=== PATIENT | female | born 1970 | race Caucasian/White ===

== ENCOUNTER 2017-07-04 03:57 | Inpatient (IN) | payer BC ==
[2017-07-04] VITALS (9 sets, daily range): BP systolic 108–133; BP diastolic 69–78; PULSE 54–86; TEMP 36.3–37; O2SAT 90–100; Ht 162.6 cm; Wt 63.8 kg
[~2017-07-04] VITALS: Ht 162.6 cm; Wt 63.8 kg
[2017-07-04] MEDS ORDERED: ONDANSETRON INJ 2 MG/ML 2 ML VIAL IV STA ×2 (04:19→05:28)
[2017-07-04] MEDS ORDERED: MoRPHine SULFATE 4 MG/ML 1 ML CARP\\VIAL IV STA ×2 (04:19→05:28)
--- NOTE | 2017-07-04 04:20 | EMERGENCY ROOM VISIT NOTE ---
History Report prepared by Federico: Dhruv Ivy Under the Supervision of: Dr. Adelaida Hobbs D.O. First contact with patient: 04:05 Chief Complaint: ABDOMINAL PAIN Stated Complaint: LWR ABD PAIN S/P GALLBLADDER SURGERY Nursing Triage Summary: Gallbladder out Thursday morning (24 hours). Now having pain that is persistant radiating to back. History of Present Illness The patient is a 47 year old female who presents to the Emergency Room with complaints of worsening RLQ abdominal pain that began 12 hours ago. She describes the pain as a "stabbing". She has associated symptoms of radiating back pain and nausea. She denies vomiting. Patient states she took a Percocet prior to arrival at the ED with some relief of the symptoms. Patient states that she had a cholecystectomy [address] Scott performed the patient's procedure. Source of History: patient Onset: 1 day ago Position: abdomen (RLQ) Quality: stabbing Timing: worsening Modifying Factors (Relieving): other (Percocet) Associated Symptoms: + nausea, + back pain Review of Systems See HPI for pertinent positives & negatives. A total of 10 systems reviewed and were otherwise negative. Past Medical & Surgical Medical Problems: (1) Bile leak, postoperative Surgical Problems: (1) Hx of cholecystectomy Family History Cancer Gallbladder disease Social History Smoking Status: Never Smoker Alcohol Use: none Drug Use: none Marital Status: Current/Historical Medications No Active Prescriptions or Reported Meds Allergies Coded Allergies: No Known Allergies (Unverified , 07/04/17) Physical Exam Vital Signs Date Time Temp Pulse Resp B/P (MAP) Pulse Ox O2 Delivery O2 Flow Rate FiO2 07/04/17 08:11 36.9 74 22 136/86 100 Nasal Cannula 2.0 07/04/17 06:48 72 33 94 Room Air 07/04/17 06:33 69 96 07/04/17 06:30 132/73 07/04/17 06:18 64 31 94 07/04/17 06:03 63 34 94 07/04/17 06:01 130/68 07/04/17 05:48 58 19 94 07/04/17 05:33 65 30 97 07/04/17 05:28 129/70 07/04/17 05:27 66 34 96 Room Air 07/04/17 05:12 56 07/04/17 04:57 54 32 98 07/04/17 04:42 52 21 98 07/04/17 03:58 36.8 62 20 203/70 99 Room Air Physical Exam General: Extremely uncomfortable HEENT: Head - normocephalic and atraumatic Pupils are equal, round, and reactive to light. Extraocular eye muscles are intact, and sclera are anicteric. Nose - dry nasal mucosa without discharge. Mouth - moist buccal mucosa. Oropharynx is nonerythematous and there is no tonsillar exudate or edema noted. Neck: Supple; no JVD, nuchal rigidity, cervical lymphadenopathy, or auscultated bruits. Heart: Tachycardic rate and rhythm. There is a normal S1 and S2 with no murmurs , clicks, or gallops appreciated. Lungs: Clear to auscultation bilaterally with no wheezes, rales, or rhonchi. Abdomen: Soft, nondistended, with good bowel sounds. There are no palpable pulsatile masses or hepatosplenomegaly. Exquisite tenderness to palpitation to RLQ of abdomen with guarding and rebound. No obvious cellulitis or edema surrounding the surgical incisions. Extremities: No evidence of cyanosis, clubbing, or edema. There are easily palpable peripheral pulses. Skin: warm and dry with good turgor and no rashes. Medical Decision & Procedures ER Provider Diagnostic Interpretation: Radiology results as stated below per my review and the radiologist's interpretation: CT ABDOMEN & PELVIS With Contrast: Trace bilateral pleural effusions with adjacent compressive atelectasis in the lower lobes. Status post recent laparoscopic cholecystectomy. Subcutaneous emphysema in the body wall and pneumoperitoneum in the upper abdomen may represent normal postsurgical changes. There is mild ascites throughout the abdomen and pelvis, which may indicate bile leak status post cholecystectomy. Correlate clinically and consider HIDA scan for further evaluation. Spleen, pancreas, adrenal glands, and kidneys are unremarkable. No evidence of bowel obstruction or inflammation. The appendix is not clearly distinguished. Urinary bladder and uterus are unremarkable. No acute osseous findings. Radiologist: Kelby Sesay M.D. Laboratory Results 07/04/17 04:10 Red Blood Count 4.87, Mean Corpuscular Volume 76.8, Mean Corpuscular Hemoglobin 24.2, Mean Corpuscular Hemoglobin Concent 31.6, Mean Platelet Volume 10.1, Neutrophils (%) (Auto) 74.0, Lymphocytes (%) (Auto) 16.9, Monocytes (%) (Auto) 8.4, Eosinophils (%) (Auto) 0.2, Basophils (%) (Auto) 0.2, Neutrophils # (Auto) 9.16, Lymphocytes # (Auto) 2.09, Monocytes # (Auto) 1.04, Eosinophils # (Auto) 0.03, Basophils # (Auto) 0.03 07/04/17 04:10 Test 07/04/17 04:10 White Blood Count 12.39 K/uL (4.8-10.8) Red Blood Count 4.87 M/uL (4.2-5.4) Hemoglobin 11.8 g/dL (12.0-16.0) Hematocrit 37.4 % (37-47) Mean Corpuscular Volume 76.8 fL (80-100) Mean Corpuscular Hemoglobin 24.2 pg (25-34) Mean Corpuscular Hemoglobin Concent 31.6 g/dl (32-36) Platelet Count 292 K/uL (130-400) Mean Platelet Volume 10.1 fL (7.4-10.4) Neutrophils (%) (Auto) 74.0 % Lymphocytes (%) (Auto) 16.9 % Monocytes (%) (Auto) 8.4 % Eosinophils (%) (Auto) 0.2 % Basophils (%) (Auto) 0.2 % Neutrophils # (Auto) 9.16 K/uL (1.4-6.5) Lymphocytes # (Auto) 2.09 K/uL (1.2-3.4) Monocytes # (Auto) 1.04 K/uL (0.11-0.59) Eosinophils # (Auto) 0.03 K/uL (0-0.5) Basophils # (Auto) 0.03 K/uL (0-0.2) RDW Standard Deviation 46.0 fL (36.4-46.3) RDW Coefficient of Variation 16.4 % (11.5-14.5) Immature Granulocyte % (Auto) 0.3 % Immature Granulocyte # (Auto) 0.04 K/uL (0.00-0.02) Anion Gap 6.0 mmol/L (3-11) Est Creatinine Clear Calc Drug Dose 57.3 ml/min Estimated GFR () 72.9 Estimated GFR (Non- 62.9 BUN/Creatinine Ratio 12.9 (10-20) Calcium Level 8.7 mg/dl (8.5-10.1) Total Bilirubin 0.6 mg/dl (0.2-1) Direct Bilirubin 0.2 mg/dl (0-0.2) Aspartate Amino Transf (AST/SGOT) 38 U/L (15-37) Alanine Aminotransferase (ALT/SGPT) 41 U/L (12-78) Alkaline Phosphatase 65 U/L (45-117) Total Protein 8.2 gm/dl (6.4-8.2) Albumin 3.8 gm/dl (3.4-5.0) Lipase 158 U/L (73-393) Laboratory results per my review. Medications Administered Medications (Trade) Dose Ordered Sig/Nataliia Route Start Time Stop Time Status Last Admin Dose Admin Morphine Sulfate (MoRPHine SULFATE INJ) 4 mg NOW STAT IV 07/04/17 04:19 07/04/17 04:22 DC 07/04/17 04:25 4 MG Ondansetron HCl (Zofran Inj) 4 mg NOW STAT IV 07/04/17 04:19 07/04/17 04:22 DC 07/04/17 04:25 4 MG Morphine Sulfate (MoRPHine SULFATE INJ) 4 mg NOW STAT IV 07/04/17 05:28 07/04/17 05:29 DC 07/04/17 05:36 4 MG Ondansetron HCl (Zofran Inj) 4 mg NOW STAT IV 07/04/17 05:28 07/04/17 05:29 DC 07/04/17 05:35 4 MG Hydromorphone HCl (Dilaudid Inj) 0.5 mg NOW STAT IV 07/04/17 06:33 07/04/17 06:34 DC 07/04/17 06:43 0.5 MG Sodium Chloride 1,000 ml @ 250 mls/hr Q4H STAT IV 07/04/17 06:49 07/04/17 10:48 DC 07/04/17 07:17 250 MLS/HR Hydromorphone HCl (Dilaudid Inj) 1 mg Q3H PRN IV 07/04/17 07:15 07/18/17 07:14 07/04/17 16:55 1 MG Hydromorphone HCl (Dilaudid Inj) 0.5 mg NOW STAT IV 07/04/17 08:03 07/04/17 08:04 DC 07/04/17 08:08 0.5 MG Procedure Zofran Inj 4mg IV, Morphine Sulfate 4mg IV, Zofran Inj 4mg IV, Morphine Sulfate 4mg IV, Dilaudid Inj 0.5mg IV, Dilaudid Inj 0.5mg ED Course 0414: The patient was evaluated in room A12. A complete history and physical examination were performed. Nursing notes and previous electronic medical records were reviewed. IV lock was established and labs were drawn as above. 0419: Zofran Inj 4mg IV, Morphine Sulfate 4mg IV 0445: Ioversol 125ml IV for CT scan of the abdomen/pelvis. 0506: I discussed the patient's lab findings with them. 0528: The patient continues to complain of nausea and abdominal pain. She describes the pain as burning. Zofran Inj 4mg IV, Morphine Sulfate 4mg IV. I reviewed the results of the CT scan. 0626: I spoke with the patient. She rates her pain as a 7/10. 0633: Dilaudid Inj 0.5mg IV 0803: The patient was evaluated by surgery and continues to have significant discomfort. I ordered Dilaudid Inj 0.5mg IV 0900: Upon reevaluation, I discussed findings and results with the patient. She verbalized agreement of the treatment plan. I spoke with the Jarrett Hughes, the on-call PA for Dr. Roman, of Surgery. The patient will be evaluated for further management and care. Medical Decision The patient is a 47 year old female who presents to the ED with RLQ abdominal pain. Differential diagnosis includes perforated viscous, bile leak, retained common bowel duct stone, and retained CO2. Lab results show white count = 12.3, hemoglobin = 11.8, glucose = 125, normal LFTs, and normal renal function. This 47 year old female patient who underwent acute cholecystectomy yesterday. Following the procedure, the patient developed increasing abdominal pain throughout the day to the point that it was severe overnight. She presents here with stabbing/burning abdominal pain. Physical exam was concerning for an acute abdomen. The patient went for stat CT scan of the abdomen/pelvis which showed some expected intra-abdominal emphysema but also ascites. I discussed the case with surgery and they will further evaluate the patient explaining that the patient may need to undergo ERCP to rule out a bile leak. Medication Reconcilliation Current Medication List: was personally reviewed by me Blood Pressure Screening Patient's blood pressure: Elevated blood pressure Blood pressure disposition: Elevated BP felt to be situational Consults Time Called: 06 Consulting Physician: Dr. Roman - Surgeon of [facility] Returned Call: 0634 Discussed the patient's case with the on-call PAJarrett PA-C. The patient will be evaluated for further management. Impression Primary Impression: Bile leak, postoperative Scribe Attestation The scribe's documentation has been prepared under my direction and personally reviewed by me in its entirety. I confirm that the note above accurately reflects all work, treatment, procedures, and medical decision making performed by me. Departure Information Dispostion Being Evaluated By Hospitalist Prescriptions No Active Prescriptions or Reported Meds Referrals No Doctor, Assigned (PCP) Forms Call Back Authorization, HOME CARE DOCUMENTATION FORM, IMPORTANT VISIT INFORMATION Patient Instructions My [facility]
[2017-07-04 04:33] LABS: BASO % 0.2 %; BASO ABS # 0.03 K/uL (0-0.2); EOS % 0.2 %; EOS ABS # 0.03 K/uL (0-0.5); HEMATOCRIT 37.4 % (37-47); HEMOGLOBIN 11.8 g/dL (12.0-16.0); IG# 0.04 K/uL (0.00-0.02); LYMPH % 16.9 %; LYMPH ABS # 2.09 K/uL (1.2-3.4); MEAN CELL VOLUME 76.8 fL (80-100); MEAN CORPUSCULAR HEMOGLOBIN 24.2 pg (25-34); MEAN CORPUSCULAR HGB CONC 31.6 g/dl (32-36); MEAN PLATELET VOLUME 10.1 fL (7.4-10.4); MONO % 8.4 %; MONO ABS # 1.04 K/uL (0.11-0.59); NEUT ABS # 9.16 K/uL (1.4-6.5); PLATELET COUNT 292 K/uL (130-400); RED CELL DISTRIBUTION WIDTH CV 16.4 % (11.5-14.5); WHITE BLOOD COUNT 12.39 K/uL (4.8-10.8)
[2017-07-04] MEDS ORDERED: OPTIRAY 320 IV PRN (04:45)
[2017-07-04 04:57] LABS: ALBUMIN 3.8 gm/dl (3.4-5.0); CALCIUM 8.7 mg/dl (8.5-10.1); CREATININE 1.06 mg/dl (0.60-1.20); POTASSIUM 3.5 mmol/L (3.5-5.1)
[2017-07-04 05:00] LABS: TOTAL PROTEIN 8.2 gm/dl (6.4-8.2)
[2017-07-04] MEDS ORDERED: HYDROmorphone INJ 0.5 MG/0.5 ML SYR IV STA ×2 (06:33→08:03)
[2017-07-04] MEDS ORDERED: SODIUM CHLORIDE 0.9% 1000ML 1,000 ML IV STA (06:49)
--- NOTE | 2017-07-04 06:54 | DIAGNOSTIC IMAGING REPORT ---
CT SCAN OF THE ABDOMEN AND PELVIS WITH IV CONTRAST CLINICAL HISTORY: Right lower quadrant pain status post recent cholecystectomy. COMPARISON STUDY: No priors. TECHNIQUE: Following the IV administration of 120 cc of Optiray 320, CT scan of the abdomen and pelvis is performed from the lung bases to the proximal femora. Images are reviewed in the axial, sagittal, and coronal planes. IV contrast was administered without complication. A dose lowering technique was utilized adhering to the principles of ALARA. CT DOSE: 297.90 mGy.cm FINDINGS: Lung bases: The heart is normal in size and without pericardial effusion. There are trace pleural effusions with bibasilar atelectasis. Liver: The contrast-enhanced liver is normal in size, contour, and attenuation. There is minimal central intrahepatic biliary ductal dilatation. The hepatic veins and portal veins are patent. Gallbladder: Surgically absent noting clips in the gallbladder fossa. There is no organized fluid collection to gallbladder fossa. Spleen: Normal in size and attenuation. Pancreas: Unremarkable. Adrenal glands: Unremarkable. Kidneys: The contrast enhanced kidneys are normal in size and without hydronephrosis. The kidneys enhance symmetrically. Abdominal vasculature: The abdominal aorta is normal in course and caliber. Bowel: The small bowel and colon are normal in course and caliber. The appendix is not clearly visualized. Peritoneum: There is a small to moderate volume of intraperitoneal free air, greatest in the upper abdomen. This is likely related to recent surgery. There is a small volume of perihepatic and perisplenic free fluid, as well as free fluid in the cul-de-sac. Lymphadenopathy: None. Pelvic viscera: The bladder, uterus, and adnexa are normal as visualized. Skeletal structures: No lytic or blastic lesions are seen. Soft tissues: There is body wall edema. Foci of subcutaneous gas in the right lower quadrant abdominal wall and the periumbilical region are likely related to laparoscopy ports and recent surgery. IMPRESSION: 1. There are trace pleural effusions with bibasilar atelectasis. 2. There is intraperitoneal free air as well as subcutaneous emphysema in the body wall which are likely expected postoperative finding. 3. There is a small volume of abdominopelvic ascites as well as body wall edema. This could be related to hydration status. A bile leak would be impossible to exclude by CT. If there is clinical concern for bile leak then a nuclear hepatobiliary scan could be considered. 4. Additional findings as above. Electronically signed by: Reza Loving M.D. 07/04/2017 6:52 AM Dictated Date/Time: 07/04/2017 6:46 AM
--- NOTE | 2017-07-04 07:08 | Medical Consult ---
Consultation Date of Consultation: Jul 04, 2017. Attending Physician: Reason for Consultation: Possible Bile Leak History of Present Illness patient is a 47F who presents to the ED this AM due to severe lower quadrant abdominal pain that came on around 3 AM. She is s/p laparoscopic cholecystectomy with Dr. Scott yesterday morning 07/03/17 and was discharged around 1230 pm that day. States she went home and had some soreness and shoulder pain from the surgery, but it was manageable. When she woke up at 3AM this morning she was in severe pain and told her she needed to goto the ED. Denies nausea, vomiting. States she normally feels a bit cold but denies fevers/chills. No BM yet and reports no flatus. CT abd/pelvis shows trace bilateral pleural effusions in the lower lobes, post-surgical changes and mild ascites throughout the abdomen and pelvis which may represent a bile leak. WBC mildly elevated at 12.39, AST 38, remaining LFTs WNL. Denies pain like this in the past. Reports the morphine she has received thus far has done nothing for the pain. Social History Smoking Status: Never Smoker Allergies Coded Allergies: No Known Allergies (Unverified , 07/04/17) Current Inpatient Medications Current Inpatient Medications Medications (Trade) Dose Ordered Sig/Nataliia Route Start Time Stop Time Status Last Admin Dose Admin Ioversol (Optiray 320) 125 ml UD PRN IV 07/04/17 04:45 07/08/17 04:44 Review of Systems Constitutional: No fever, No chills, No sweats Abdomen: + pain (Lower quadrants), No nausea, No vomiting, No diarrhea Genitourinary - Female: No dysuria Physical Exam Date Time Temp Pulse Resp B/P (MAP) Pulse Ox O2 Delivery O2 Flow Rate FiO2 07/04/17 05:28 129/70 07/04/17 05:27 66 34 96 Room Air 07/04/17 05:12 56 07/04/17 04:57 54 32 98 07/04/17 04:42 52 21 98 07/04/17 03:58 36.8 62 20 203/70 99 Room Air Patient laying in bed with at bedside, nursing staff administering dilaudid as I entered the room. General Appearance: WD/WN, no apparent distress Head: normocephalic, atraumatic ENT: hearing grossly normal Respiratory/Chest: no respiratory distress, no accessory muscle use Abdomen/GI: normal bowel sounds, no organomegaly, no pulsatile mass, + tenderness (Lower quadrants), + distended (Mild), + guarding Neurologic/Psych: alert, normal mood/affect, oriented x 3 Skin: normal color, warm/dry, no rash Laboratory Results Last 24 Hours Test 07/04/17 04:10 White Blood Count 12.39 K/uL Red Blood Count 4.87 M/uL Hemoglobin 11.8 g/dL Hematocrit 37.4 % Mean Corpuscular Volume 76.8 fL Mean Corpuscular Hemoglobin 24.2 pg Mean Corpuscular Hemoglobin Concent 31.6 g/dl Platelet Count 292 K/uL Mean Platelet Volume 10.1 fL Neutrophils (%) (Auto) 74.0 % Lymphocytes (%) (Auto) 16.9 % Monocytes (%) (Auto) 8.4 % Eosinophils (%) (Auto) 0.2 % Basophils (%) (Auto) 0.2 % Neutrophils # (Auto) 9.16 K/uL Lymphocytes # (Auto) 2.09 K/uL Monocytes # (Auto) 1.04 K/uL Eosinophils # (Auto) 0.03 K/uL Basophils # (Auto) 0.03 K/uL RDW Standard Deviation 46.0 fL RDW Coefficient of Variation 16.4 % Immature Granulocyte % (Auto) 0.3 % Immature Granulocyte # (Auto) 0.04 K/uL Sodium Level 136 mmol/L Potassium Level 3.5 mmol/L Chloride Level 102 mmol/L Carbon Dioxide Level 28 mmol/L Anion Gap 6.0 mmol/L Blood Urea Nitrogen 14 mg/dl Creatinine 1.06 mg/dl Est Creatinine Clear Calc Drug Dose 57.3 ml/min Estimated GFR () 72.9 Estimated GFR (Non- 62.9 BUN/Creatinine Ratio 12.9 Random Glucose 125 mg/dl Calcium Level 8.7 mg/dl Total Bilirubin 0.6 mg/dl Direct Bilirubin 0.2 mg/dl Aspartate Amino Transf (AST/SGOT) 38 U/L Alanine Aminotransferase (ALT/SGPT) 41 U/L Alkaline Phosphatase 65 U/L Total Protein 8.2 gm/dl Albumin 3.8 gm/dl Lipase 158 U/L Assessment & Plan Possible bile leak 1 day s/p laparoscopic cholecystectomy Still in some pain, will see if dilaudid helps. No N/V. WBC 12.38, AST 38 with remaining LFTs WNL. Consult GI for possible ERCP. Admit Med/surg, NPO, IV Fluids, IV pain medication PRN, IV Zofran for nausea. Findings discussed with Dr. Roman. Please contact with questions or concerns.
[2017-07-04] MEDS ORDERED: HYDROCODONE/ACETAMIN 5/325MG TAB PO PRN (07:15)
[2017-07-04] MEDS ORDERED: HYDROmorphone INJ 0.5 MG/0.5 ML SYR IV PRN (07:15)
[2017-07-04] MEDS ORDERED: ONDANSETRON INJ 2 MG/ML 2 ML VIAL IV PRN ×2 (07:15→18:15)
[2017-07-04] MEDS: HYDROmorphone INJ 1 MG/ML SYR IV PRN ×3 (09:28→16:55)
--- NOTE | 2017-07-04 13:37 | DIAGNOSTIC IMAGING REPORT ---
NUCLEAR HEPATOBILIARY SCAN CLINICAL HISTORY: Right-sided abdominal pain. Recent cholecystectomy. Free fluid seen by CT. Clinical concern for bile leak. COMPARISON STUDY: Abdominal CT dated 07/04/2017. TECHNIQUE: Dynamic images of the liver and anterior abdomen were obtained every 5 minutes for a total of 30 minutes following the IV administration of 5.34mCi of technetium 99m Choletec. An additional static images performed at 45 minutes. FINDINGS: The hepatobiliary scan shows prompt and homogeneous hepatic uptake. There is visualized activity within the intra and extrahepatic biliary tree at 10 minutes. There is extensive pooling of tracer identified in the gallbladder fossa which extends into the mid to lower abdomen. This is not located within bowel loops and consistent with a bile leak. IMPRESSION: Findings are consistent with a large bile leak. Electronically signed by: Reza Loving M.D. 07/04/2017 1:36 PM Dictated Date/Time: 07/04/2017 1:33 PM
--- NOTE | 2017-07-04 14:48 | Gastrointestinal Consultation ---
Gastrointestinal Consultation Date of Consultation: Jul 04, 2017 Attending Physician: Heather Red Consulting Physician: Reason for Consultation: Bile leak History of Present Illness Patient is a 47 year old female with no medical comorbids s/p Lap enedina yesterday for gallstones, developed severe abdominal pain in the night hence presented to the hospital. CT scan showed intraabdominal fluid collection suspicious for bile leak. HIDA scan confirmed the leak hence GI consulted. She feels better with Opioids only, denies any vomiting, no fever or chills. No melena or rectal bleed. Past Medical/Surgical History Past Medical History: None Past Surgical History: Lap Enedina Family History Cancer Gallbladder disease Noncontributory Social History Smoking Status: Never Smoker Alcohol Use: none Drug Use: none Occupation Status: employed Allergies Coded Allergies: No Known Allergies (Unverified , 07/04/17) Current Medications Home Meds and Scripts Medications Dose Route/Sig Max Daily Dose Days Date Category No Active Prescriptions or Reported Medications Rx Review of Systems Constitutional: No fever Eyes: No worsening of vision, No eye pain ENT: No hearing loss, No unusual epistaxis Respiratory: No cough, No sputum Cardiac: No chest pain, No orthopnea Abdomen: + see HPI Musculoskeletal: No joint pain, No muscle pain Female : No dysuria, No urinary frequency Neuro: No weakness, No numbness/tingling Psych: No anxiety, No insomnia Heme: No abnormal bleeding/bruising Endo: No fatigue Skin: No rash, No itch Physical Exam Date Time Temp Pulse Resp B/P (MAP) Pulse Ox O2 Delivery O2 Flow Rate FiO2 07/04/17 11:59 36.7 65 18 133/73 (93) 100 Room Air 07/04/17 10:15 Nasal Cannula 2.0 07/04/17 10:15 36.8 86 16 123/78 Nasal Cannula 2.0 07/04/17 10:03 36.8 72 14 132/75 99 07/04/17 09:30 36.8 72 14 132/75 99 Nasal Cannula 2.0 07/04/17 08:11 36.9 74 22 136/86 100 Nasal Cannula 2.0 07/04/17 06:48 72 33 94 Room Air 07/04/17 06:33 69 96 07/04/17 06:30 132/73 07/04/17 06:18 64 31 94 07/04/17 06:03 63 34 94 07/04/17 06:01 130/68 07/04/17 05:48 58 19 94 07/04/17 05:33 65 30 97 07/04/17 05:28 129/70 07/04/17 05:27 66 34 96 Room Air 07/04/17 05:12 56 07/04/17 04:57 54 32 98 07/04/17 04:42 52 21 98 07/04/17 03:58 36.8 62 20 203/70 99 Room Air General Appearance: no apparent distress Eyes: PERRL, EOMI Neck: supple, no JVD Respiratory/Chest: lungs clear, normal breath sounds Cardiovascular: regular rate, rhythm, no edema Abdomen: normal bowel sounds, non tender, soft Neurologic/Psych: alert, oriented x 3 Skin: warm/dry, no rash Laboratory Results Last 24 Hours Test 07/04/17 04:10 07/04/17 12:10 White Blood Count 12.39 K/uL Red Blood Count 4.87 M/uL Hemoglobin 11.8 g/dL Hematocrit 37.4 % Mean Corpuscular Volume 76.8 fL Mean Corpuscular Hemoglobin 24.2 pg Mean Corpuscular Hemoglobin Concent 31.6 g/dl Platelet Count 292 K/uL Mean Platelet Volume 10.1 fL Neutrophils (%) (Auto) 74.0 % Lymphocytes (%) (Auto) 16.9 % Monocytes (%) (Auto) 8.4 % Eosinophils (%) (Auto) 0.2 % Basophils (%) (Auto) 0.2 % Neutrophils # (Auto) 9.16 K/uL Lymphocytes # (Auto) 2.09 K/uL Monocytes # (Auto) 1.04 K/uL Eosinophils # (Auto) 0.03 K/uL Basophils # (Auto) 0.03 K/uL RDW Standard Deviation 46.0 fL RDW Coefficient of Variation 16.4 % Immature Granulocyte % (Auto) 0.3 % Immature Granulocyte # (Auto) 0.04 K/uL Sodium Level 136 mmol/L Potassium Level 3.5 mmol/L Chloride Level 102 mmol/L Carbon Dioxide Level 28 mmol/L Anion Gap 6.0 mmol/L Blood Urea Nitrogen 14 mg/dl Creatinine 1.06 mg/dl Est Creatinine Clear Calc Drug Dose 57.3 ml/min Estimated GFR () 72.9 Estimated GFR (Non- 62.9 BUN/Creatinine Ratio 12.9 Random Glucose 125 mg/dl Calcium Level 8.7 mg/dl Total Bilirubin 0.6 mg/dl Direct Bilirubin 0.2 mg/dl Aspartate Amino Transf (AST/SGOT) 38 U/L Alanine Aminotransferase (ALT/SGPT) 41 U/L Alkaline Phosphatase 65 U/L Total Protein 8.2 gm/dl Albumin 3.8 gm/dl Lipase 158 U/L Urine Color YELLOW Urine Appearance CLEAR Urine pH 5.0 Urine Specific Early > 1.045 Urine Protein NEG Urine Glucose (UA) NEG Urine Ketones TRACE Urine Occult Blood NEG Urine Nitrite NEG Urine Bilirubin NEG Urine Urobilinogen NEG Urine Leukocyte Esterase NEG Impression Patient is a 47 year old female with confirmed bile leak post Lap enedina yesterday. No fever, has slight leukocytosis. Plan Will arrange for ERCP with biliary stent placement. Discussed with the patient and she understood the plan.
[2017-07-04] MEDS: SODIUM CHLORIDE 0.9% 1000ML 1,000 ML IV SCH ×2 (15:49→20:57)
--- NOTE | 2017-07-04 16:48 | History & Physical Bridge Note ---
H&P Re-Evaluation Bridge Note: I have examined the patient, reviewed the History & Physical and in the interval since the performance of the History & Physical I have noted the following changes of clinical significance: HIDA scan shows bile leak. Discussed with GI-- will perform ERCP with stent placement. Discussed with radiology. State they do not believe there is fluid pocket safe enough for them to drain at this time and interventionalist not available. Will need to perform laparoscopy with washout/drain placement. Discussed options/risks ( bleeding/infection/blood clots/dvt/pe/mi/injury to other organs such as liver/ bowel etc... questions answered. ok to proceed.
--- NOTE | 2017-07-04 17:02 | History & Physical Bridge Note ---
H&P Re-Evaluation Bridge Note: I have examined the patient, reviewed the History & Physical and in the interval since the performance of the History & Physical I have noted the following changes of clinical significance: No changes noted I explained to the patient in details regarding risk, benefit, alternatives of the procedure including risk of infection, bleeding, perforation and pancreatitis. She understood and agreed.
[2017-07-04] MEDS ORDERED: AMPICILLIN SOD 1 GM VIAL ONE (17:27)
[2017-07-04] MEDS ORDERED: INDOMETHACIN 50 MG SUPP PR ONE ×2 (17:28→17:30)
[2017-07-04] MEDS ORDERED: MIDAZOLAM HCL 1 MG/ML 2ML VIAL ONE (17:29)
[2017-07-04] MEDS ORDERED: FENTANYL CITRATE INJ 50 MCG/1 ML 2 ML VIAL ONE ×2 (17:30→18:04)
[2017-07-04] MEDS ORDERED: AMPICILLIN/SULBACTAM SOD INJ 3,000 MG in SODIUM CHLORIDE 0.9% 100ML 100 ML IV ONE (18:00)
[2017-07-04] MEDS ORDERED: FENTANYL CITRATE INJ 50 MCG/1 ML 2 ML VIAL IV PRN (18:15)
[2017-07-04] MEDS ORDERED: LABETALOL HCL IV 5 MG/ML 20ML IV PRN (18:15)
[2017-07-04] MEDS ORDERED: MEPERIDINE HCL 25 MG/ML CARP IV PRN (18:15)
[2017-07-04] MEDS ORDERED: ATROPINE SULFATE 0.1 MG/ML 5ML SYR IV PRN (18:15)
[2017-07-04] MEDS ORDERED: EpHEDrine SULFATE INJ 50 MG/ML AMP IV PRN (18:15)
[2017-07-04] MEDS ORDERED: HYDROmorphone INJ 1 MG/ML SYR IV PRN (18:15)
--- NOTE | 2017-07-04 18:27 | [facility] Post Operative Brief Note ---
Immediate Operative Summary Operative Date Jul 04, 2017. Pre-Operative Diagnosis BILE DUCT LEAK Post-Operative Diagnosis SAME PREOP Procedure(s) Performed ERCP, DIAGNOSTIC LAPAROSCOPY WITH DRAIN PLACEMENT Surgeon , Dr. Jeffry DUMONT Hoop Punch And Coiler Operator Helper Surgeon(s) none Estimated Blood Loss 0 Findings Consistent with Post-Op Diagnosis Specimens none Drains Biliary stent placed Anesthesia Type General Complication(s) none Disposition Accompanied Pt To Recover: no Disposition: Recovery Room / PACU
--- NOTE | 2017-07-04 18:32 | GI REPORT ---
Procedure Date: 07/04/2017 5:04 PM Procedure: ERCP Indications: Abdominal pain of suspected biliary origin, Follow-up of bile leak Medicines: General Anesthesia Complications: No immediate complications. Estimated blood loss: Minimal. Estimated Blood Loss: Estimated blood loss was minimal. Procedure: Pre-Anesthesia Assessment: - Prior to the procedure, a History and Physical was performed, and patient medications, allergies and sensitivities were reviewed. The patient's tolerance of previous anesthesia was reviewed. - The risks and benefits of the procedure and the sedation options and risks were discussed with the patient. All questions were answered and informed consent was obtained. - Patient identification and proposed procedure were verified prior to the procedure by the physician, the nurse and the nursing home aide. The procedure was verified in the procedure room. - Pre-procedure physical examination revealed no contraindications to sedation. - ASA Grade Assessment: II - A patient with mild systemic disease. - ASA Grade Assessment: II - A patient with mild systemic disease. - After reviewing the risks and benefits, the patient was deemed in satisfactory condition to undergo the procedure. - The anesthesia plan was to use general anesthesia. - The heart rate, respiratory rate, oxygen saturations, blood pressure, adequacy of pulmonary ventilation, and response to care were monitored throughout the procedure. - The physical status of the patient was re-assessed after the procedure. After obtaining informed consent, the scope was passed under direct vision. Throughout the procedure, the patient's blood pressure, pulse, and oxygen saturations were monitored continuously. The Scope was introduced through the mouth, and advanced to the duodenum and used to inject contrast into the bile duct. The ERCP was accomplished without difficulty. The patient tolerated the procedure well. Findings: A lithographic printing machinist film of the abdomen was obtained. Surgical clips, consistent with a previous cholecystectomy, were seen in the area of the right upper quadrant of the abdomen. The esophagus was successfully intubated under direct vision without detailed examination of the pharynx, larynx, and associated structures, and upper GI tract. The upper GI tract was grossly normal. The major papilla was congested. The bile duct was deeply cannulated with the short-nosed traction sphincterotome (Omni 35) and 0.035 in Acrobat 2 guidewire. Contrast was injected. I personally interpreted the bile duct images. Contrast extended to the hepatic ducts. Extravasation of contrast originating from the cystic duct was observed. The biliary orifice was stenotic. This appeared benign. Biliary sphincterotomy was made with a monofilament Fusion OMNI sphincterotome using ERBE electrocautery. There was no post-sphincterotomy bleeding. To discover objects, the biliary tree was swept with a 8.5 to 10 mm balloon starting at the bifurcation. Sludge was swept from the duct. One 10 Fr by 8 cm biliary stent with a single external flap and a single internal flap was placed 8 cm into the common bile duct. Bile flowed through the stent. The stent was in good position. The total fluoroscopy exposure time was 1 minute and 32 seconds. Indomethacin 100 mg was given via suppository to decrease the risk of post-ERCP pancreatitis (PEP). The endoscope was withdrawn from the patient. Impression: - The major papilla appeared congested. - Biliary papillary stenosis, benign. - A bile leak was found. - A biliary sphincterotomy was performed. - The biliary tree was swept and sludge was found. - One biliary stent was placed into the common bile duct. - Indomethacin given to decrease risk of post-ERCP pancreatitis. Recommendation: - Avoid aspirin and nonsteroidal anti-inflammatory medicines for 5 days. - Clear liquid diet today. - Repeat ERCP in 6 weeks to remove stent. - Use broad spectrum antibiotics for 7 days. Guanako Teran D.O. Guanako Teran, 07/04/2017 6:32:21 PM This report has been signed electronically. Heather Red MD Note Initiated On: 07/04/2017 5:04 PM I attest to the content of the Intraoperative Record and orders documented therein, exceptions below
[2017-07-04] MEDS ORDERED: PROPOFOL IV EMULSION 10 MG/ML 20 ML VIAL IV ONE (19:01)
[2017-07-04] MEDS ORDERED: ROCURONIUM BROMIDE 10 MG/ML 5 ML VIAL IV ONE (19:02)
[2017-07-04] MEDS ORDERED: DEXAMETHASONE SOD INJ 4 MG/ML VIAL ONE (19:02)
[2017-07-04] MEDS ORDERED: ONDANSETRON INJ 2 MG/ML 2 ML VIAL ONE (19:02)
[2017-07-04] MEDS ORDERED: LIDOCAINE HCL 2% 2 ML VIAL (20MG/ML) ONE (19:03)
[2017-07-04] MEDS ORDERED: TISSEEL FIBRIN SEALANT 4ML TOP ONE (19:04)
[2017-07-04] MEDS ORDERED: GLYCOPYRROLATE INJ 0.2 MG/ML VIAL ONE (19:04)
[2017-07-04] MEDS ORDERED: NEOSTIGMINE METHYLSULFATE 5 MG/5 ML SYR ONE (19:05)
[2017-07-04] MEDS ORDERED: BUPIVACAINE/EPINEPHRINE 0.5% MPF 1:200,000 30 ML VIAL ONE (19:08)
--- NOTE | 2017-07-04 19:12 | DIAGNOSTIC IMAGING REPORT ---
INTRAOPERATIVE RADIOGRAPHS CLINICAL HISTORY: Bile leak status post cholecystectomy. Fluoroscopy time: 93 seconds. FINDINGS: 8 spot fluoroscopic views of the right upper quadrant from an ERCP procedure are presented. Cholecystectomy clips are noted. The common bile duct is normal in caliber. There is contrast leakage from the cystic duct remnant. A balloon sweep of the common duct is performed. The final image shows a common bile duct stent in place. IMPRESSION: Intraoperative images from an ERCP procedure and common bile duct stent placement as above. Electronically signed by: Reza Loving M.D. 07/04/2017 7:10 PM Dictated Date/Time: 07/04/2017 7:09 PM
--- NOTE | 2017-07-04 19:37 | [facility] Operative Report ---
Operative Report Operative Date Jul 04, 2017. Pre-Operative Diagnosis BILE DUCT LEAK Post-Operative Diagnosis SAME PREOP Procedure(s) Performed ERCP, DIAGNOSTIC LAPAROSCOPY WITH DRAIN PLACEMENT;abdominal washout. Surgeon , Dr. Jeffry DUMONT Healthcare Sales Representative Surgeon(s) none Estimated Blood Loss 0 Findings bile leak; biloma Specimens none Drains Biliary stent placed; VALERIANO into RUQ Complication(s) None Disposition Recovery Room / PACU Description of Procedure The patient had been brought to the operating room and an ERCP was performed with stent placement. They had found a bile leak. They felt it was likely from the cystic duct clips. Please see their dictation .When they were finished the patient was already intubated in the supine position. The abdomen was sterilely prepped and draped in usual fashion. I reopened her supraumbilical incision and took out the 0 Vicryl suture. We then placed 2 #0 Vicryl stay sutures in the fascia and inserted a Sierra trocar. I insufflated the abdomen to 18 mmHg and inserted the laparoscope. There was a large amount of bile throughout the abdomen and both the right upper quadrant left upper quadrant and pelvis. Everything was bile stained throughout. I reopened her old subxiphoid incision and placed a 5 mm trocar as well as one of her right midabdominal incisions and placed another 5 mm trocar. I spent the majority of the time irrigating and suctioning out the bile. We suctioned/irrigated into the pelvis as well as the right and left upper quadrants. We thoroughly irrigated everything after we did suck the bile out until the majority of the irrigant was clear. I did evaluate the gallbladder fossa as well as the clips. I could not see where the bile had been leaking from. It was certainly too dangerous to place any additional clips as identifying the anatomy was difficult. We did watch for awhile and I saw no new bile leaking. I Did place Tisseel sealant over all of the clips as well as in the gallbladder fossa. Once this was done I placed a 10 flat Rosalino-Gamino drain brought out through one of the port sites and placed in the right upper quadrant. It was secured to the skin using 2-0 silk. We then removed all the trochars and desufflated the abdomen. The fascia the camera port was closed using 0 Vicryl figure-of- eight fashion. All wounds were irrigated and closed using 4-0 Monocryl. Marcaine was injected around him for postoperative analgesia and skin glue used as a dressing. My physician's patient care assistant was present throughout the entire case. He assisted and prepping the patient. He assisted in port placement he helped retract the liver as well as run the camera the also helped with wound closure and dressing placement at the end of the case I attest to the content of the Intraoperative Record and any orders documented therein. Any exceptions are noted below.
--- NOTE | 2017-07-04 20:15 | Anesthesiology Progress Note ---
Anesthesia Post Op Note Date & Time Jul 04, 2017 at 20:14 Vital Signs Pain Intensity: 0 Vital Signs Past 12 Hours Date Time Temp Pulse Resp B/P (MAP) Pulse Ox O2 Delivery O2 Flow Rate FiO2 07/04/17 20:10 56 18 98/75 100 Oxymask 10 07/04/17 20:00 66 18 108/68 99 Oxymask 10 07/04/17 19:51 36.1 66 18 82/60 99 Oxymask 10 07/04/17 16:00 68 99 Nasal Cannula 2.0 07/04/17 16:00 99 Nasal Cannula 2.0 07/04/17 15:09 37.0 71 18 123/78 (93) 90 Room Air 07/04/17 11:59 36.7 65 18 133/73 (93) 100 Room Air 07/04/17 10:15 Nasal Cannula 2.0 07/04/17 10:15 36.8 86 16 123/78 Nasal Cannula 2.0 07/04/17 10:03 36.8 72 14 132/75 99 07/04/17 09:30 36.8 72 14 132/75 99 Nasal Cannula 2.0 Notes Mental Status: alert / awake / arousable, participated in evaluation Pt Amnestic to Procedure: Yes Nausea / Vomiting: adequately controlled Pain: adequately controlled Airway Patency, RR, SpO2: stable & adequate BP & HR: stable & adequate Hydration State: stable & adequate Anesthetic Complications: no major complications apparent
[2017-07-05] MEDS: AMPICILLIN/SULBACTAM SOD INJ 3,000 MG in SODIUM CHLORIDE 0.9% 100ML 100 ML IV SCH ×4 (00:39→18:28)
[2017-07-05 03:54] VITALS: BP 102/64; PULSE 71; TEMP 36.6; O2SAT 96
[2017-07-05] MEDS: HYDROCODONE/ACETAMIN 5/325MG TAB PO PRN ×3 (04:01→21:23)
[2017-07-05] MEDS: SODIUM CHLORIDE 0.9% 1000ML 1,000 ML IV SCH ×3 (05:37→20:13)
[2017-07-05 06:43] LABS: HEMOGLOBIN 9.8 g/dL (12.0-16.0); MEAN CELL VOLUME 76.9 fL (80-100); MEAN CORPUSCULAR HEMOGLOBIN 24.3 pg (25-34); MEAN CORPUSCULAR HGB CONC 31.6 g/dl (32-36); MEAN PLATELET VOLUME 10.4 fL (7.4-10.4); PLATELET COUNT 205 K/uL (130-400); RED CELL DISTRIBUTION WIDTH CV 16.7 % (11.5-14.5); RED CELL DISTRIBUTION WIDTH SD 47.4 fL (36.4-46.3); WHITE BLOOD COUNT 14.84 K/uL (4.8-10.8)
[2017-07-05 07:06] VITALS: BP 115/68; PULSE 73; TEMP 37; O2SAT 96
[2017-07-05 07:18] LABS: ALBUMIN 2.6 gm/dl (3.4-5.0); CALCIUM 8.2 mg/dl (8.5-10.1); CREATININE 0.69 mg/dl (0.60-1.20); TOTAL PROTEIN 6.1 gm/dl (6.4-8.2)
--- NOTE | 2017-07-05 08:25 | Surgery Progress Note ---
Surgery Progress Note Date of Service Jul 05, 2017. Subjective Post OP Day: 1 No nausea, No vomiting Better pain control- feeling much better than yesterday. Objective Vital Signs: Date Time Temp Pulse Resp B/P (MAP) Pulse Ox O2 Delivery O2 Flow Rate FiO2 07/05/17 07:06 37.0 73 16 115/68 (84) 96 Room Air 07/05/17 03:54 36.6 71 14 102/64 (77) 96 Room Air 07/05/17 00:37 Room Air 07/04/17 23:45 36.3 58 15 110/74 (86) 95 Room Air 07/04/17 22:55 36.6 54 15 108/70 (83) 96 Room Air 07/04/17 21:51 36.7 56 19 110/69 (83) 93 Room Air 07/04/17 21:17 36.7 60 18 116/71 (86) 93 Room Air 07/04/17 20:45 93 Room Air 07/04/17 20:45 36.8 58 18 119/74 (89) 91 Room Air 07/04/17 20:30 36.8 56 20 110/77 95 Room Air 07/04/17 20:20 60 20 106/78 100 Room Air 07/04/17 20:10 56 18 98/75 100 Oxymask 10 07/04/17 20:00 66 18 108/68 99 Oxymask 10 07/04/17 19:51 36.1 66 18 82/60 99 Oxymask 10 07/04/17 16:00 68 99 Nasal Cannula 2.0 07/04/17 16:00 99 Nasal Cannula 2.0 07/04/17 15:09 37.0 71 18 123/78 (93) 90 Room Air 07/04/17 11:59 36.7 65 18 133/73 (93) 100 Room Air 07/04/17 10:15 Nasal Cannula 2.0 07/04/17 10:15 36.8 86 16 123/78 Nasal Cannula 2.0 07/04/17 10:03 36.8 72 14 132/75 99 07/04/17 09:30 36.8 72 14 132/75 99 Nasal Cannula 2.0 Physical Exam: VALERIANO drainage (30cc (07/04), 60cc (so far today)) General Appearance: WD/WN, no apparent distress Abdomen: soft, + pertinent finding (tender to palpation, but greatly improved. ) Incision(s): clean, dry, intact Laboratory Results: Results Past 24 Hours Test 07/04/17 12:10 07/05/17 06:02 Range/Units Urine Color YELLOW Urine Appearance CLEAR CLEAR Urine pH 5.0 4.5-7.5 Urine Specific [place] > 1.045 1.000-1.030 Urine Protein NEG NEG Urine Glucose (UA) NEG NEG Urine Ketones TRACE NEG Urine Occult Blood NEG NEG Urine Nitrite NEG NEG Urine Bilirubin NEG NEG Urine Urobilinogen NEG NEG Urine Leukocyte Esterase NEG NEG White Blood Count 14.84 4.8-10.8 K/uL Red Blood Count 4.03 4.2-5.4 M/uL Hemoglobin 9.8 12.0-16.0 g/dL Hematocrit 31.0 37-47 % Mean Corpuscular Volume 76.9 80-100 fL Mean Corpuscular Hemoglobin 24.3 25-34 pg Mean Corpuscular Hemoglobin Concent 31.6 32-36 g/dl RDW Standard Deviation 47.4 36.4-46.3 fL RDW Coefficient of Variation 16.7 11.5-14.5 % Platelet Count 205 130-400 K/uL Mean Platelet Volume 10.4 7.4-10.4 fL Sodium Level 140 136-145 mmol/L Potassium Level 4.0 3.5-5.1 mmol/L Chloride Level 107 98-107 mmol/L Carbon Dioxide Level 26 21-32 mmol/L Anion Gap 7.0 3-11 mmol/L Blood Urea Nitrogen 10 7-18 mg/dl Creatinine 0.69 0.60-1.20 mg/dl Est Creatinine Clear Calc Drug Dose 88.0 ml/min Estimated GFR () 121.0 Estimated GFR (Non- 104.4 BUN/Creatinine Ratio 15.0 10-20 Random Glucose 122 70-99 mg/dl Calcium Level 8.2 8.5-10.1 mg/dl Total Bilirubin 0.5 0.2-1 mg/dl Direct Bilirubin 0.2 0-0.2 mg/dl Aspartate Amino Transf (AST/SGOT) 35 15-37 U/L Alanine Aminotransferase (ALT/SGPT) 44 12-78 U/L Alkaline Phosphatase 55 45-117 U/L Total Protein 6.1 6.4-8.2 gm/dl Albumin 2.6 3.4-5.0 gm/dl Assessment & Plan POD #1- s/p ERCP (dr. Red), Diagnostic Lap with Drain Placement, Abdominal Washout with Dr. Roman Patient seen and examined with Dr. Roman. Vital signs stable. Feeling much better this AM- pain better controlled. Clear liquids for breakfast this AM. Can advance diet as tolerated. Possible discharge tomorrow. Will most likely be discharged with drain. clear liquids
--- NOTE | 2017-07-05 09:59 | Gastroenterology Progress Note ---
Gastroenterology Progress Note Patient was seen and examined. s/p ERCP yesterday for biliary leak, s/p sphincterotomy and plastic stent placement. Feels better today and her pain resolved. Had Laparoscopy with peritoneal wash and drain placement yesterday. On exam: Abdomen is soft, nontender. VALERIANO drain noted. Recommendations: Advance diet as tolerated. Repeat ERCP in 6 weeks for stent removal. To complete a 7 days ABx course. Drain management as per surgery. Please recall GI if needed, will sign off.
[2017-07-05 16:07] VITALS: BP 121/58; PULSE 69; TEMP 36.7; O2SAT 97
[2017-07-05 22:53] VITALS: BP 102/59; PULSE 77; TEMP 36.7; O2SAT 96
[2017-07-06] MEDS: AMPICILLIN/SULBACTAM SOD INJ 3,000 MG in SODIUM CHLORIDE 0.9% 100ML 100 ML IV SCH ×3 (00:21→12:00)
[2017-07-06] MEDS: SODIUM CHLORIDE 0.9% 1000ML 1,000 ML IV SCH (00:22)
[2017-07-06 07:02] VITALS: BP 106/71; PULSE 82; TEMP 37; O2SAT 96
[2017-07-06] MEDS ORDERED: BACITRACIN OINT 15 GM TUBE EXT SCH (09:15)
--- NOTE | 2017-07-06 09:21 | Surgery Progress Note ---
Surgery Progress Note Date of Service Jul 06, 2017. Subjective Post OP Day: 2 + feeling well, + flatus, + pain controlled, No bowel movement, No nausea, No vomiting Patient sitting up eating breakfast- feeling good this AM. Objective Vital Signs: Date Time Temp Pulse Resp B/P (MAP) Pulse Ox O2 Delivery O2 Flow Rate FiO2 07/06/17 08:11 Room Air 07/06/17 07:02 37.0 82 18 106/71 (83) 96 Room Air 07/06/17 00:21 Room Air 07/05/17 22:53 36.7 77 18 102/59 (73) 96 Room Air 07/05/17 16:07 36.7 69 18 121/58 (79) 97 Room Air 07/05/17 15:50 Room Air Physical Exam: VALERIANO drainage (50cc (yesterday) 90cc (so far today) ) General Appearance: WD/WN, no apparent distress Head: normocephalic, atraumatic Abdomen: non distended, soft, + pertinent finding (drain in place- dressing intact from surgery. ) Incision(s): clean, dry, intact, no erythema, no drainage Assessment & Plan POD #2- s/p s/p ERCP (dr. Red), Diagnostic Lap with Drain Placement, Abdominal Washout with Dr. Roman Patient doing well today- tolerating diet. Will advance to regular diet for lunch. Feeling much better today. Pain controlled. No nausea or vomiting. Plan is to discharge today- will discharge with drain- plan is to remove drain in general surgery office in about 5 days. Patient can shower. Drainage irritated skin near drain placement- will have patient shower and apply bacitracin to irritation and then place clean dressing. GI to remove stent in next couple of weeks. POD #1- s/p ERCP (dr. Red), Diagnostic Lap with Drain Placement, Abdominal Washout with Dr. Roman Patient seen and examined with Dr. Roman. Vital signs stable. Feeling much better this AM- pain better controlled. Clear liquids for breakfast this AM. Can advance diet as tolerated. Possible discharge tomorrow. Will most likely be discharged with drain. POD #1- s/p ERCP (dr. Red), Diagnostic Lap with Drain Placement, Abdominal Washout with Dr. Roman Patient seen and examined with Dr. Roman. Vital signs stable. Feeling much better this AM- pain better controlled. Clear liquids for breakfast this AM. Can advance diet as tolerated. Possible discharge tomorrow. Will most likely be discharged with drain.
--- NOTE | 2017-07-06 10:23 | Gastroenterology Progress Note ---
Progress Note Date of Service: Jul 06, 2017 Subjective Pt evaluation today including: conversation w/ patient, physical exam, chart review, lab review Pt was seen and evaluated, chart reviewed. ERCP for post-op bile leak from cholecystectomy diagnostic lap with drain placement & abdominal washout. She notes much imrpovement of her symptoms, suggests nearly 100% of her symptoms that brought her in are relieved. Is tolerating clear liquid diet. Is passing gas, but no BM. Has not moved bowels x 5 days. No fever, chills, CP, SOB. Surgery to evaluate the pt at time of my evaluation w/ dressing change. Review of Systems Constitutional: No fever, No chills Respiratory: No cough Cardiac: No chest pain Abdomen: No pain, No nausea, No vomiting, No diarrhea Medications Current Inpatient Medications Medications (Trade) Dose Ordered Sig/Nataliia Route Start Time Stop Time Status Last Admin Dose Admin Ioversol (Optiray 320) 125 ml UD PRN IV 07/04/17 04:45 07/08/17 04:44 Ondansetron HCl (Zofran Inj) 4 mg Q4H PRN IV 07/04/17 07:15 08/03/17 07:14 Acetaminophen/ Hydrocodone Bitart ([place] 5/325 Tab) 1 tab Q4H PRN PO 07/04/17 07:15 07/18/17 07:14 07/04/17 22:58 1 TAB Hydromorphone HCl (Dilaudid Inj) 0.5 mg Q3H PRN IV 07/04/17 07:15 07/18/17 07:14 Acetaminophen/ Hydrocodone Bitart ([place] 5/325 Tab) 2 tab Q4H PRN PO 07/04/17 07:15 07/18/17 07:14 07/05/17 21:23 2 TAB Hydromorphone HCl (Dilaudid Inj) 1 mg Q3H PRN IV 07/04/17 07:15 07/18/17 07:14 07/04/17 16:55 1 MG Ampicillin Sodium/ Sulbactam Sodium 3000 mg/Sodium Chloride 108 ml @ 200 mls/hr Q6H IV 07/05/17 00:00 07/15/17 00:00 07/06/17 05:30 200 MLS/HR Bacitracin (Bacitracin Oint) 1 appln PRN EXT 07/06/17 09:15 08/05/17 09:14 Objective Vital Signs Date Time Temp Pulse Resp B/P (MAP) Pulse Ox O2 Delivery O2 Flow Rate FiO2 07/06/17 08:11 Room Air 07/06/17 07:02 37.0 82 18 106/71 (83) 96 Room Air 07/06/17 00:21 Room Air 07/05/17 22:53 36.7 77 18 102/59 (73) 96 Room Air 07/05/17 16:07 36.7 69 18 121/58 (79) 97 Room Air 07/05/17 15:50 Room Air Physical Exam General Appearance: no apparent distress Eyes: PERRL ENT: hearing grossly normal Neck: supple Respiratory/Chest: lungs clear, normal breath sounds Cardiovascular: regular rate, rhythm Abdomen: normal bowel sounds, soft, no organomegaly, + tenderness (generalized) Neurologic/Psych: alert, normal mood/affect, oriented x 3 Skin: normal color Assessment and Plan 47 year old female w/ biliary leak after cholecystectomy who is s/p ERCP Thursday for biliary leak, s/p sphincterotomy and plastic stent placement. Feels better today and her pain resolved. Had Laparoscopy with peritoneal wash and drain placement Thursday as well, clinically improving. Advance diet as tolerated. Repeat ERCP in 6 weeks for stent removal. To complete a 7 days ABx course Drain management as per surgery. Colace Dulcolax suppository GI to sign off. Please call with any questions or concerns. I saw and evaluated the patient. I agree with the plan as stated by . The patient underwent ERCP on Thursday evening with placement of a biliary stent. She notes that she is much improved today. Recommendations ERCP in 4-6 weeks
[2017-07-06] MEDS: HYDROCODONE/ACETAMIN 5/325MG TAB PO PRN (11:09)
--- NOTE | 2017-07-06 12:17 | Discharge Instructions ---
Discharge Instructions Date of Service Jul 06, 2017. Admission Reason for Admission: Bile Leak,Postoperative Discharge Discharge Diagnosis / Problem: Bile Leak, Postoperative Discharge Goals Goal(s): Decrease discomfort, Improve function Activity Recommendations Activity Limitations: as noted below Lifting Limitations: no more than 10 pounds Exercise/Sports Limitations: until after follow-up appointment May Resume Sexual Activity: after follow-up appointment Shower/Bathe: no limitations Driving or Machine Use: resume 1 day after discharge Instructions / Follow-Up Instructions / Follow-Up Please follow-up with Dr. Roman in the General Surgery Clinic located at [address] [place] [address] on Thursday, 07/10 at 11AM. Please call the office at [phone] if you need to change this appointment day or time. Please call the office with any questions or concerns. Current Hospital Diet Patient's current hospital diet: Full Liquid Diet Discharge Diet Recommended Diet: Regular Diet Procedures Procedures Performed: ERCP, DIAGNOSTIC LAPAROSCOPY WITH DRAIN PLACEMENT;abdominal washout. Pending Studies Studies pending at discharge: no Medical Emergencies . Who to Call and When: Medical Emergencies: If at any time you feel your situation is an emergency, please call 911 immediately. . Non-Emergent Contact Non-Emergency issues call your: Primary Care Provider, Surgeon Call Non-Emergent contact if: temperature is above 101.5, your pain is not controlled, wound has increased drainage, wound has increased redness . "Provider Documentation" section prepared by Muna Madison. . VTE Core Measure Inpt VTE Proph given/why not?: SCD's
[2017-07-06] MEDS ORDERED: HYDR-5688 PO (12:35)
[2017-07-06 13:30] VITALS: BP 106/71; PULSE 82; TEMP 37; O2SAT 96
== END 2017-07-06 15:30 | disposition home or self-care (01) | DRG 358 ==
LOC: C.EDB 03:58 → C.MSN 08:16 → EDBEDREQ 08:23 → ENRESERV 09:10
PROVIDERS: ADMIT Surgery; ATTEND Surgery
PROC: 3E1M38Z Irrigation of Peritoneal Cavity using Irrigating Substance, Percutaneous Approach (ICD-10-PCS; principal; 2017-07-04 16:30)
PROC: 0WJG4ZZ Inspection of Peritoneal Cavity, Percutaneous Endoscopic Approach (ICD-10-PCS; principal; 2017-07-04 16:30)
DX: K91.89 Other postprocedural complications and disorders of digestive system (principal); Z90.49 Acquired absence of other specified parts of digestive tract; Z80.9 Family history of malignant neoplasm, unspecified; Y83.8 Other surgical procedures as the cause of abnormal reaction of the patient, or of later complication, without mention of misadventure at the time of the procedure